=== PATIENT | female | born 1985 | race Caucasian/White ===

== ENCOUNTER 2019-02-15 23:46 | Observation (INO) | payer OTHER ==
[2019-02-16] LABS: ADD MAN DIFF? NO
[2019-02-16 00:10] LABS: BASOPHIL # 0.1 10^3/ul (0.0-0.1); BASOPHILS % 0.4 % (0.0-2.0); EOSINOPHILS # 0.2 10^3/ul (0.0-0.5); EOSINOPHILS % 1.7 % (0.0-7.0); HEMATOCRIT 43.8 % (37.0-47.0); HEMOGLOBIN 14.6 g/dl (12.0-16.0); LYMPHOCYTES % 26.9 % (15.0-51.0); MEAN CORPUSCULAR HEMOGLOBIN 30.9 pg (29.0-33.0); MEAN CORPUSCULAR HGB CONC 33.3 g/dl (32.0-37.0); MEAN CORPUSCULAR VOLUME 92.8 fl (82.0-101.0); MEAN PLATELET VOLUME 9.4 fl (7.4-10.4); MONOCYTE # 0.8 10^3/ul (0.3-0.9); MONOCYTES % 7.3 % (0.0-11.0); NEUTROPHIL # 7.2 10^3/ul (1.6-7.5); NEUTROPHILS % 63.2 % (39.0-77.0); PLATELET COUNT 338 10^3/UL (140-415); RED BLOOD COUNT 4.72 10^6/ul (4.20-5.40); RED CELL DISTRIBUTION WIDTH 12.2 % (11.5-14.5)
[2019-02-16 00:10] LABS: WHITE BLOOD COUNT 11.3 10^3/ul (4.8-10.8)
[2019-02-16 00:29] LABS: INR 0.89; PARTIAL THROMBOPLASTIN TIME 25.6 Sec (23.0-35.0); PROTIME 12.2 Sec (11.9-14.9)
[2019-02-16 00:31] LABS: ANION GAP 12 (5-13); BLOOD UREA NITROGEN 17 mg/dl (7-20); CALCIUM 9.8 mg/dl (8.4-10.2); CARBON DIOXIDE 28 mmol/L (21-31); CHLORIDE 99 mmol/L (97-110); CHOL/HDL RATIO 3.2 RATIO; CHOLESTEROL 227 mg/dl (100-200); CREATINE KINASE 78 IU/L (23-200); CREATININE 0.71 mg/dl (0.44-1.00); Estimated GFR > 60 mL/min (>60); GLUCOSE 133 mg/dl (70-220); HDL CHOLESTEROL 69 mg/dl (34-82); LDL CHOLESTEROL,CALCULATED 122 mg/dl; POTASSIUM 3.7 mmol/L (3.5-5.1); SODIUM 139 mmol/L (135-144); TRIGLYCERIDES 182 mg/dl (0-149)
[2019-02-16 00:32] LABS: ETHANOL < 10.0 mg/dl (0-0)
[2019-02-16] MEDS: ASPIRIN 81 MG TAB PO (00:39)
[2019-02-16] MEDS: LORAZEPAM 2 MG INJ IV (00:39)
[2019-02-16] MEDS: morphine 4 MG/ML VIAL IV (00:39)
[2019-02-16 00:42] LABS: CK INDEX 0.3; CK-MB < 0.22 ng/ml (0.0-2.4); TROPONIN-I < 0.012 ng/ml (0.000-0.120)
[2019-02-16 00:55] LABS: HEMOGLOBIN A1C 5.5 % (0-5.9)
[2019-02-16] MEDS: DIPHENHYDRAMINE 50 MG INJ IV (01:16)
[2019-02-16] MEDS: SOD CHLORIDE 0.9% 1,000 ML IV (01:16)
[2019-02-16] MEDS: PROCHLORPERAZINE 10 MG INJ IV (01:16)
[2019-02-16] MEDS: ACETAMINOPHEN 325 MG TAB PO (17:18)
== END 2019-02-16 19:50 | disposition home or self-care (01) ==
LOC: E/R 23:46 → 6WM 02-16 03:17
PROVIDERS: Internal Medicine
DX: R20.0 Anesthesia of skin (principal); H54.3 Unqualified visual loss, both eyes; I69.354 Hemiplegia and hemiparesis following cerebral infarction affecting left non-dominant side; I10 Essential (primary) hypertension; Z79.82 Long term (current) use of aspirin
CPT/HCPCS: 36415; 70450; 70496; 70498; 70551; 71045; 80048; 80061; 80307; 82550; 82553; 82962; 83036; 84484; 85025; 85610; 85730; 93005; 96374; 96375; 99285-25; G0378